=== PATIENT | male | born 1995 | race Caucasian/White ===

== ENCOUNTER 2023-12-27 11:35 | Outpatient (CLI) | payer MEDICARE, MEDICAID, SELFPAY ==
--- NOTE | ~2023-12-27 | US_ITS ---
EXAMINATION: US soft tissue LE RT DATE: 12/27/2023 11:52 INDICATION: Localized swelling, mass and lump, right lower limb. TECHNIQUE: Multiple grayscale and Doppler ultrasound images of the right lower limb were obtained. COMPARISON: None FINDINGS: There is a patent varicose vein in the patient's area of concern in right lower limb. IMPRESSION: 1. Patent varicose vein in right lower limb in the patient's area of concern. Reviewed, dictated and finalized at location []
== END 2023-12-27 11:36 | disposition home or self-care (01) ==
LOC: MICIMG 11:36
PROVIDERS: PCP Family Medicine; Visit Provider Nurse Practitioner Family
DX: R22.41 Localized swelling, mass and lump, right lower limb (principal)
CPT/HCPCS: 76882